=== PATIENT | male | born 1960 | race Caucasian/White ===

== ENCOUNTER 2017-06-05 18:53 | Observation (INO) | payer SELFPAY ==
[2017-06-05] MEDS ORDERED: Pantoprazole 40 MG Vial IVPUSH ONE (19:39)
[2017-06-05] MEDS ORDERED: Sodium Chloride 0.9% 2.5 ML Syringe FLUSH PRN (19:39)
[2017-06-05] MEDS ORDERED: Sodium Chloride 0.9% 1,000 ML IV ONE ×2 (19:39→22:14)
[2017-06-05] MEDS ORDERED: Sodium Chloride 0.9% 10 ML Syringe FLUSH PRN (19:39)
--- NOTE | 2017-06-05 19:43 | EDM.PDOC ---
ED HPI GENERAL MEDICAL PROBLEM - General Chief Complaint: Gastrointestinal Problem Stated Complaint: RECTAL BLEEDING Time Seen by Provider: 06/05/17 19:29 - History of Present Illness INITIAL COMMENTS - FREE TEXT/NARRATIVE: HISTORY AND PHYSICAL: History of present illness: The patient is a 56-year-old male with a history of diabetes but no GI history who presents with rectal bleeding that started about one hour ago. Patient says he had a normal day and eat normal foods and had to have a bowel movement and when he got up from the toilet he noticed that there was loose stool with bright red blood. He had not had any preceding abdominal pain and had no rectal pain with the bowel movement. Since that time he has had several more episodes of bright red blood but no stool and again has no abdominal pain no lightheadedness no chest pain no shortness of breath. The patient denies any nausea vomiting fevers or chills. He is not bleeding in his underwear without having a bowel movement. He says they're essentially no discomfort with these bowel movements and he has no upper abdominal pain. He has not eaten any new foods and says that he follows in our clinic but has not been there recently. Patient has pictures of his last bowel movements which are visually to me only bright red blood without any stool. He did not take a picture of his first bowel movement. Review of systems: As per history of present illness and below otherwise all systems reviewed and negative. Past medical history: As per history of present illness and as reviewed below otherwise noncontributory. Surgical history: As per history of present illness and as reviewed below otherwise noncontributory. Social history: No reported history of drug or alcohol abuse. Family history: As per history of present illness and as reviewed below otherwise noncontributory. Physical exam: General: Well-developed well-nourished man who is overweight and nontoxic and vital signs were noted by me. HEENT: Atraumatic, normocephalic, pupils reactive, negative for conjunctival pallor or scleral icterus, mucous membranes moist, throat clear, neck supple, nontender, trachea midline. Lungs: Clear to auscultation, breath sounds equal bilaterally, chest nontender. Heart: S1S2, regular rhythm and tachycardic rate on my evaluation but only mildly. Abdomen: Soft, nondistended, nontender. Bowel sounds are normoactive. Negative for masses or hepatosplenomegaly. Negative for costovertebral tenderness. Pelvis: Stable nontender. Genitourinary: Deferred. Rectal: Tone is normal and there are no external masses but there is perianal redness and some irritation with a small fissure at the 12:00 lithotomy position which is not bleeding. There are no internal masses appreciated and there is only a scant amount of dark blood in the vault. Extremities: Atraumatic, negative for cords or calf pain. Neurovascular unremarkable. Neuro: Awake, alert, oriented. Cranial nerves II through XII unremarkable. Cerebellum unremarkable. Motor and sensory unremarkable throughout. Exam nonfocal. Skin: Normal turgor no diaphoresis normal overall color Diagnostics: CBC CMP INR lipase CT scan of the abdomen and pelvis orthostatic vitals Therapeutics: IV, IV fluids Protonix Orthostatic vitals are positive for blood pressure change of a systolic of 120 laying to a systolic of 80 while standing with little change in heart rate from 92-106. Patient was a little lightheaded with this evaluation. 2155: Patient is aware of all testing results and care plan for observation admission; case was discussed with Dr. Moon who will see and evaluate the patient but agrees as long as surgical consult is made. I've contacted Dr. Waters at [phone] and he will see the patient in the morning for formal consultation. The patient will receive another dose of IV fluids and be observed on telemetry. Patient did tell me earlier that he has not taken his evening insulin dose yet Impression: Rectal bleeding with orthostasis stable, hyperglycemia with history of diabetes Definitive disposition and diagnosis as appropriate pending reevaluation and review of above. denies pain Pain Score (Numeric/FACES): 0 - Related Data Allergies Allergy/AdvReac Type Severity Reaction Status Date / Time No Known Allergies Allergy Verified 06/05/17 19:26 Home Meds: Home Meds Insulin Inj 06/05/17 [History] Past Medical History - Past Health History Medical/Surgical History: Denies Medical/Surgical History HEENT History: Reports: None Cardiovascular History: Reports: None Respiratory History: Reports: None Gastrointestinal History: Reports: None Genitourinary History: Reports: None Musculoskeletal History: Reports: None Neurological History: Reports: None Psychiatric History: Reports: None Endocrine/Metabolic History: Reports: Diabetes, Type II Hematologic History: Reports: None Immunologic History: Reports: None Oncologic (Cancer) History: Reports: None Dermatologic History: Reports: None - Infectious Disease History Infectious Disease History: Reports: Chicken Pox, Measles - Past Surgical History Musculoskeletal Surgical History: Reports: Arthroscopic Knee, Other (See Below) Social & Family History - Family History Family Medical History: Noncontributory - Tobacco Use Years of Tobacco use: 10 Second Hand Smoke Exposure: No - Caffeine Use Caffeine Use: Reports: Energy Drinks, Soda - Recreational Drug Use Recreational Drug Use: No ED ROS GENERAL - Review of Systems Review Of Systems: ROS reveals no pertinent complaints other than HPI. ED EXAM, GENERAL - Physical Exam Exam: See Below (see dictation) Course - Vital Signs Last Recorded V/S: Last Vital Signs Temp 37.1 C 06/05/17 19:27 Pulse 125 H 06/05/17 19:27 Resp 19 06/05/17 19:27 BP 127/79 06/05/17 19:27 Pulse Ox 96 06/05/17 19:27 Orthostatic Blood Pressure [ 80/46 Standing] Orthostatic Blood Pressure [ 80/51 Sitting] Orthostatic Blood Pressure [ 120/70 Supine] - Orders/Labs/Meds Orders: Active Orders 24 hr Category Date Time Status Patient Status [ADT] Stat ADT 06/05/17 22:13 Ordered Blood Glucose Check, Bedside [RC] ONETIME Care 06/05/17 19:39 Active Notify Provider Consults [RC] ASDIRECTED Care 06/05/17 22:13 Ordered Orthostatic Vital Signs [RC] ASDIRECTED Care 06/05/17 19:39 Active Consult to Physician [CONS] Stat Cons 06/05/17 22:13 Ordered Abdomen Pelvis w Cont [CT] Stat Exams 06/05/17 19:39 Taken Sodium Chloride 0.9% [Normal Saline] 1,000 ml Med 06/05/17 22:14 Ordered IV STAT Sodium Chloride 0.9% [Saline Flush] Med 06/05/17 19:39 Active 10 ml FLUSH ASDIRECTED PRN Sodium Chloride 0.9% [Saline Flush] Med 06/05/17 19:39 Active 2.5 ml FLUSH ASDIRECTED PRN Saline Lock Insert [OM.PC] Stat Oth 06/05/17 19:39 Ordered Medication Orders Sodium Chloride (Saline Flush) 10 ml FLUSH ASDIRECTED PRN PRN Reason: Keep Vein Open Last Admin: 06/05/17 20:13 Dose: 10 ml Sodium Chloride (Saline Flush) 2.5 ml FLUSH ASDIRECTED PRN PRN Reason: Keep Vein Open Last Admin: 06/05/17 20:13 Dose: 2.5 ml Labs: Laboratory Tests 06/05/17 06/05/17 06/05/17 Range/Units 19:45 19:45 19:45 WBC 8.77 (4.0-11.0) K/uL RBC 4.52 (4.50-5.90) M/uL Hgb 13.9 (13.0-17.0) g/dL Hct 40.6 (38.0-50.0) % MCV 89.8 (80.0-98.0) fL MCH 30.8 (27.0-32.0) pg MCHC 34.2 (31.0-37.0) g/dL RDW Std Deviation 40.4 (28.0-62.0) fl RDW Coeff of Hayden 12 (11.0-15.0) % Plt Count 275 (150-400) K/uL MPV 10.50 (7.40-12.00) fL Neut % (Auto) 68.2 (48.0-80.0) % Lymph % (Auto) 22.9 (16.0-40.0) % [place] % (Auto) 7.4 (0.0-15.0) % Eos % (Auto) 1.3 (0.0-7.0) % Baso % (Auto) 0.2 (0.0-1.5) % Neut # (Auto) 6.0 H (1.4-5.7) K/uL Lymph # (Auto) 2.0 (0.6-2.4) K/uL [place] # (Auto) 0.7 (0.0-0.8) K/uL Eos # (Auto) 0.1 (0.0-0.7) K/uL Baso # (Auto) 0.0 (0.0-0.1) K/uL Nucleated RBC % 0.0 /100WBC Nucleated RBCs # 0 K/uL INR 0.96 Sodium 133 L (136-148) mmol/L Potassium 4.3 (3.5-5.1) mmol/L Chloride 99 (98-107) mmol/L Carbon Dioxide 26.2 (21.0-32.0) mmol/L BUN 20 H (7.0-18.0) mg/dL Creatinine 1.0 (0.8-1.3) mg/dL Est Cr Clr Drug Dosing 81.70 mL/min Estimated GFR (MDRD) > 60.0 ml/min Glucose 430 H (74-106) mg/dL POC Glucose (60-110) mg/dL Calcium 8.8 (8.5-10.1) mg/dL Total Bilirubin 0.3 (0.2-1.0) mg/dL AST 17 (15-37) IU/L ALT 36 (14-63) IU/L Alkaline Phosphatase 60 (46-116) U/L Total Protein 7.1 (6.4-8.2) g/dL Albumin 3.5 (3.4-5.0) g/dL Globulin 3.6 H (2.0-3.5) g/dL Albumin/Globulin Ratio 1.0 L (1.3-2.8) Lipase 56 L (73-393) U/L 06/05/17 Range/Units 20:18 WBC (4.0-11.0) K/uL RBC (4.50-5.90) M/uL Hgb (13.0-17.0) g/dL Hct (38.0-50.0) % MCV (80.0-98.0) fL MCH (27.0-32.0) pg MCHC (31.0-37.0) g/dL RDW Std Deviation (28.0-62.0) fl RDW Coeff of Hayden (11.0-15.0) % Plt Count (150-400) K/uL MPV (7.40-12.00) fL Neut % (Auto) (48.0-80.0) % Lymph % (Auto) (16.0-40.0) % [place] % (Auto) (0.0-15.0) % Eos % (Auto) (0.0-7.0) % Baso % (Auto) (0.0-1.5) % Neut # (Auto) (1.4-5.7) K/uL Lymph # (Auto) (0.6-2.4) K/uL [place] # (Auto) (0.0-0.8) K/uL Eos # (Auto) (0.0-0.7) K/uL Baso # (Auto) (0.0-0.1) K/uL Nucleated RBC % /100WBC Nucleated RBCs # K/uL INR Sodium (136-148) mmol/L Potassium (3.5-5.1) mmol/L Chloride (98-107) mmol/L Carbon Dioxide (21.0-32.0) mmol/L BUN (7.0-18.0) mg/dL Creatinine (0.8-1.3) mg/dL Est Cr Clr Drug Dosing mL/min Estimated GFR (MDRD) ml/min Glucose (74-106) mg/dL POC Glucose 382 H (60-110) mg/dL Calcium (8.5-10.1) mg/dL Total Bilirubin (0.2-1.0) mg/dL AST (15-37) IU/L ALT (14-63) IU/L Alkaline Phosphatase (46-116) U/L Total Protein (6.4-8.2) g/dL Albumin (3.4-5.0) g/dL Globulin (2.0-3.5) g/dL Albumin/Globulin Ratio (1.3-2.8) Lipase (73-393) U/L Meds: Medications Generic Name Dose Route Start Last Admin Trade Name Freq PRN Reason Stop Dose Admin Sodium Chloride 10 ml 06/05/17 19:39 06/05/17 20:13 Saline Flush FLUSH 10 ml ASDIRECTED PRN Administration Keep Vein Open Sodium Chloride 2.5 ml 06/05/17 19:39 06/05/17 20:13 Saline Flush FLUSH 2.5 ml ASDIRECTED PRN Administration Keep Vein Open Discontinued Medications Generic Name Dose Route Start Last Admin Trade Name Freq PRN Reason Stop Dose Admin Sodium Chloride 1,000 mls @ 999 mls/hr 06/05/17 19:39 06/05/17 20:13 Normal Saline IV 06/05/17 20:39 999 mls/hr STAT ONE Administration Iopamidol 100 ml 06/05/17 20:46 06/05/17 20:46 Isovue-370 (76%) IVPUSH 06/05/17 20:47 100 ml ONETIME STA Administration Pantoprazole Sodium 80 mg 06/05/17 19:39 06/05/17 20:12 Protonix Iv IVPUSH 06/05/17 19:40 80 mg .BOLUS ONE Administration Departure - Departure Time of Disposition: 22:16 Disposition: Refer to Observation Condition: Good Clinical Impression: Rectal bleeding - Discharge Information Referrals: Pop Luciano DO [Primary Care Provider] - Forms: ED Department Discharge - My Orders Last 24 Hours: My Active Orders 06/05/17 19:39 Blood Glucose Check, Bedside [RC] ONETIME Orthostatic Vital Signs [RC] ASDIRECTED Abdomen Pelvis w Cont [CT] Stat Sodium Chloride 0.9% [Saline Flush] 10 ml FLUSH ASDIRECTED PRN Sodium Chloride 0.9% [Saline Flush] 2.5 ml FLUSH ASDIRECTED PRN Saline Lock Insert [OM.PC] Stat 06/05/17 22:13 Patient Status [ADT] Stat Notify Provider Consults [RC] ASDIRECTED Consult to Physician [CONS] Stat 06/05/17 22:14 Sodium Chloride 0.9% [Normal Saline] 1,000 ml IV STAT - Assessment/Plan Last 24 Hours: My Active Orders 06/05/17 19:39 Blood Glucose Check, Bedside [RC] ONETIME Orthostatic Vital Signs [RC] ASDIRECTED Abdomen Pelvis w Cont [CT] Stat Sodium Chloride 0.9% [Saline Flush] 10 ml FLUSH ASDIRECTED PRN Sodium Chloride 0.9% [Saline Flush] 2.5 ml FLUSH ASDIRECTED PRN Saline Lock Insert [OM.PC] Stat 06/05/17 22:13 Patient Status [ADT] Stat Notify Provider Consults [RC] ASDIRECTED Consult to Physician [CONS] Stat 06/05/17 22:14 Sodium Chloride 0.9% [Normal Saline] 1,000 ml IV STAT
[2017-06-05 20:13] LABS: CHLORIDE,CL 99 mmol/L (98-107); SODIUM,NA 133 mmol/L (136-148)
[2017-06-05] MEDS ORDERED: Iopamidol 755 Mg/ML 100 ML Bottle IVPUSH STA (20:46)
[2017-06-05] MEDS ORDERED: Insulin Detemir 100 Units/ML 3 ML Pen SUBCUT ONE (23:52)
--- NOTE | 2017-06-06 00:07 | PCM.HP ---
H&P History of Present Illness - General Admit Problem/Dx: Admission Diagnosis/Problem Admission Diagnosis/Problem Rectal hemorrhage - History of Present Illness Initial Comments - Free Text/Narative: 56 yo male who presents with bright red blood in his stool that would make the toilet bowel red. He has had two such bowel movements tonight. He does report some right lower quadrant pain. He denies any lightheadedness. He was noted to be orthostatic n the ED with BP in the 80s while standing. Dr. Waters was consulted in the ED. He denies any nausea or vomiting. HE has a history of DM and takes 70/30 at niight befor he goes to bed. Left Lower Abdomen Pain Score (Numeric/FACES): 3 denies pain Pain Score (Numeric/FACES): 0 - Related Data Allergies/Adverse Reactions: Allergies Allergy/AdvReac Type Severity Reaction Status Date / Time No Known Allergies Allergy Verified 06/05/17 19:26 Home Medications: Home Meds Insulin NPH/Insulin Reg,Human [Novolin 70-30] 50 units SUBCUT BEDTIME 06/05/17 [ History] Past Medical History - Past Health History Medical/Surgical History: Denies Medical/Surgical History HEENT History: Reports: None Cardiovascular History: Reports: None Respiratory History: Reports: None Gastrointestinal History: Reports: None Genitourinary History: Reports: None Musculoskeletal History: Reports: None Neurological History: Reports: None Psychiatric History: Reports: None Endocrine/Metabolic History: Reports: Diabetes, Type II Hematologic History: Reports: None Immunologic History: Reports: None Oncologic (Cancer) History: Reports: None Dermatologic History: Reports: None - Infectious Disease History Infectious Disease History: Reports: Chicken Pox, Measles - Past Surgical History HEENT Surgical History: Reports: Eye Surgery Male Surgical History: Reports: None Musculoskeletal Surgical History: Reports: Arthroscopic Knee, Other (See Below) Social & Family History - Family History Family Medical History: Noncontributory - Tobacco Use Smoking Status *Q: Never Smoker Years of Tobacco use: 10 Second Hand Smoke Exposure: No - Caffeine Use Caffeine Use: Reports: Coffee, Energy Drinks, Soda, Tea - Recreational Drug Use Recreational Drug Use: No H&P Review of Systems - Review of Systems: Review Of Systems: ROS reveals no pertinent complaints other than HPI. Exam - Exam Exam: See Below - Vital Signs Vital Signs: Last Vital Signs Temp 37.1 C 06/05/17 19:27 Pulse 92 06/05/17 22:29 Resp 16 06/05/17 22:29 BP 127/73 06/05/17 22:29 Pulse Ox 95 06/05/17 22:29 Orthostatic Blood Pressure [ 80/46 Standing] Orthostatic Blood Pressure [ 80/51 Sitting] Orthostatic Blood Pressure [ 120/70 Supine] Weight: 130.453 kg - Exam General: Alert, Oriented HEENT: Mucosa Moist & [place] Lungs: Clear to Auscultation, Normal Respiratory Effort Cardiovascular: Regular Rate, Regular Rhythm GI/Abdominal Exam: Normal Bowel Sounds, Soft, Non-Tender Skin: Warm, Dry, Intact Neurological: No: Focal Deficit - Patient Data Lab Results Last 24 hrs: Laboratory Results - last 24 hr 06/05/17 06/05/17 06/05/17 Range/Units 19:45 19:45 19:45 WBC 8.77 (4.0-11.0) K/uL RBC 4.52 (4.50-5.90) M/uL Hgb 13.9 (13.0-17.0) g/dL Hct 40.6 (38.0-50.0) % MCV 89.8 (80.0-98.0) fL MCH 30.8 (27.0-32.0) pg MCHC 34.2 (31.0-37.0) g/dL RDW Std Deviation 40.4 (28.0-62.0) fl RDW Coeff of Hayden 12 (11.0-15.0) % Plt Count 275 (150-400) K/uL MPV 10.50 (7.40-12.00) fL Neut % (Auto) 68.2 (48.0-80.0) % Lymph % (Auto) 22.9 (16.0-40.0) % [place] % (Auto) 7.4 (0.0-15.0) % Eos % (Auto) 1.3 (0.0-7.0) % Baso % (Auto) 0.2 (0.0-1.5) % Neut # (Auto) 6.0 H (1.4-5.7) K/uL Lymph # (Auto) 2.0 (0.6-2.4) K/uL [place] # (Auto) 0.7 (0.0-0.8) K/uL Eos # (Auto) 0.1 (0.0-0.7) K/uL Baso # (Auto) 0.0 (0.0-0.1) K/uL Nucleated RBC % 0.0 /100WBC Nucleated RBCs # 0 K/uL INR 0.96 Sodium 133 L (136-148) mmol/L Potassium 4.3 (3.5-5.1) mmol/L Chloride 99 (98-107) mmol/L Carbon Dioxide 26.2 (21.0-32.0) mmol/L BUN 20 H (7.0-18.0) mg/dL Creatinine 1.0 (0.8-1.3) mg/dL Est Cr Clr Drug Dosing 81.70 mL/min Estimated GFR (MDRD) > 60.0 ml/min Glucose 430 H (74-106) mg/dL POC Glucose (60-110) mg/dL Calcium 8.8 (8.5-10.1) mg/dL Total Bilirubin 0.3 (0.2-1.0) mg/dL AST 17 (15-37) IU/L ALT 36 (14-63) IU/L Alkaline Phosphatase 60 (46-116) U/L Total Protein 7.1 (6.4-8.2) g/dL Albumin 3.5 (3.4-5.0) g/dL Globulin 3.6 H (2.0-3.5) g/dL Albumin/Globulin Ratio 1.0 L (1.3-2.8) Lipase 56 L (73-393) U/L 06/05/17 Range/Units 20:18 WBC (4.0-11.0) K/uL RBC (4.50-5.90) M/uL Hgb (13.0-17.0) g/dL Hct (38.0-50.0) % MCV (80.0-98.0) fL MCH (27.0-32.0) pg MCHC (31.0-37.0) g/dL RDW Std Deviation (28.0-62.0) fl RDW Coeff of Hayden (11.0-15.0) % Plt Count (150-400) K/uL MPV (7.40-12.00) fL Neut % (Auto) (48.0-80.0) % Lymph % (Auto) (16.0-40.0) % [place] % (Auto) (0.0-15.0) % Eos % (Auto) (0.0-7.0) % Baso % (Auto) (0.0-1.5) % Neut # (Auto) (1.4-5.7) K/uL Lymph # (Auto) (0.6-2.4) K/uL [place] # (Auto) (0.0-0.8) K/uL Eos # (Auto) (0.0-0.7) K/uL Baso # (Auto) (0.0-0.1) K/uL Nucleated RBC % /100WBC Nucleated RBCs # K/uL INR Sodium (136-148) mmol/L Potassium (3.5-5.1) mmol/L Chloride (98-107) mmol/L Carbon Dioxide (21.0-32.0) mmol/L BUN (7.0-18.0) mg/dL Creatinine (0.8-1.3) mg/dL Est Cr Clr Drug Dosing mL/min Estimated GFR (MDRD) ml/min Glucose (74-106) mg/dL POC Glucose 382 H (60-110) mg/dL Calcium (8.5-10.1) mg/dL Total Bilirubin (0.2-1.0) mg/dL AST (15-37) IU/L ALT (14-63) IU/L Alkaline Phosphatase (46-116) U/L Total Protein (6.4-8.2) g/dL Albumin (3.4-5.0) g/dL Globulin (2.0-3.5) g/dL Albumin/Globulin Ratio (1.3-2.8) Lipase (73-393) U/L Result Diagrams: 06/06/17 12:09 06/06/17 04:35 Problem List Initiated/Reviewed/Updated: Yes Orders Last 24hrs: Active Orders 24 hr Category Date Time Status Patient Status [ADT] Stat ADT 06/05/17 22:13 Active Accu Check [Blood Glucose Check, Bedside] [RC] Q6HRRT Care 06/06/17 00:00 Active Blood Glucose Check, Bedside [RC] ONETIME Care 06/05/17 19:39 Active Cardiac Monitoring [RC] CONTINUOUS Care 06/05/17 23:55 Ordered Notify Provider Consults [RC] ASDIRECTED Care 06/05/17 22:13 Active Orthostatic Vital Signs [RC] ASDIRECTED Care 06/05/17 19:39 Active Oxygen Therapy [RC] PRN Care 06/05/17 23:54 Ordered Telemetry Monitoring [Cardiac Monitoring] [RC] . Care 06/05/17 23:52 Active DIRECTED VTE/DVT Education [RC] PER UNIT ROUTINE Care 06/05/17 23:54 Ordered Vital Signs [RC] Q4H Care 06/05/17 23:54 Ordered Consult to Diabetic Nurse Specialist [CONS] Routine Cons 06/05/17 23:54 Ordered Consult to Physician [CONS] Stat Cons 06/05/17 22:13 Active Nothing per Oral Now Diet [DIET] Diet 06/05/17 Breakfast Ordered Abdomen Pelvis w Cont [CT] Stat Exams 06/05/17 19:39 Taken BASIC METABOLIC PANEL,BMP [CHEM] AM Lab 06/06/17 05:11 Ordered CBC W/O DIFF,HEMOGRAM [HEME] AM Lab 06/06/17 05:11 Ordered Insulin Aspart [NovoLOG] Med 06/05/17 23:45 Ordered See Protocol SUBCUT Q6H Sodium Chloride 0.9% @ 150 MLS/HR (1,000ml) Med 06/05/17 23:45 Ordered Sodium Chloride 0.9% [Normal Saline] 1,000 ml IV ASDIRECTED Sodium Chloride 0.9% [Saline Flush] Med 06/05/17 19:39 Active 10 ml FLUSH ASDIRECTED PRN Sodium Chloride 0.9% [Saline Flush] Med 06/05/17 19:39 Active 2.5 ml FLUSH ASDIRECTED PRN Saline Lock Insert [OM.PC] Stat Oth 06/05/17 19:39 Ordered Sequential Compression Device [OM.PC] Per Unit Routine Oth 06/05/17 23:55 Ordered Resuscitation Status Routine Resus Stat 06/05/17 23:54 Ordered Medication Orders Sodium Chloride (Normal Saline) 1,000 mls @ 150 mls/hr IV ASDIRECTED JESSENIA Insulin Aspart (Novolog) 0 unit SUBCUT Q6H JESSENIA; Protocol Sodium Chloride (Saline Flush) 10 ml FLUSH ASDIRECTED PRN PRN Reason: Keep Vein Open Last Admin: 04/01/18 20:13 Dose: 10 ml Sodium Chloride (Saline Flush) 2.5 ml FLUSH ASDIRECTED PRN PRN Reason: Keep Vein Open Last Admin: 06/05/17 20:13 Dose: 2.5 ml Assessment/Plan Comment:: 56 yo male admitted with lower GI bleed. CT scan of abdomen reports possible localized mural thickening of the sigmoid colon. Dr. Waters has been consulted. Will hydrate with IV fluids and monitor hgb. For his elevated blood sugars will give levemer [address] on sliding scale insulin
[2017-06-06] MEDS: Sodium Chloride 0.9% 1,000 ML IV SCH ×4 (00:12→19:07)
[2017-06-06] MEDS: Insulin Aspart 100 Units/ML 3 ML Pen SUBCUT SCH ×4 (00:23→17:34)
[2017-06-06] MEDS ORDERED: Sodium Chloride 0.9% 1,000 ML IV ONE (03:14)
[2017-06-06] MEDS ORDERED: Sodium Chloride 0.9% 500 ML IV SCH (04:30)
[2017-06-06 04:57] LABS: CHLORIDE,CL 107 mmol/L (98-107); SODIUM,NA 138 mmol/L (136-148)
--- NOTE | 2017-06-06 05:28 | PCM.SN ---
- Free Text/Narrative Note: pt seen, chart reviewed; gib, daily ASA 325 mg use, last one was 24 hrs ago; gib protocol, 2 large iv access, 18 gauge or above; strict i/o, avoid ASA product, daily wt, ct angio this am, transfuse to h/h above 10, cx dicted, [id number]; will follow w you
[2017-06-06] MEDS ORDERED: Morphine 4 MG/ML Syringe IV ONE (10:56)
--- NOTE | 2017-06-06 10:56 | CONS ---
DATE OF CONSULTATION: DATE OF : 1960 PRIMARY CARE PHYSICIAN: None PCP REASON FOR CONSULTATION: The patient was consulted for GI bleeding. Consult was called, and the patient was seen shortly after. HISTORY OF PRESENT ILLNESS: The patient is a 56-year-old gentleman, morbidly obese, and complained of a 12-hour history of 6 to 7 times of bloody bowel movement. The bloody is dark and dusky and is not bright red, and the patient is taking 325 mg aspirin once a day as recommended by doctor because he is diabetic, last one was 24 hours ago. The patient remarked the 6 to 7 bowel movements as 2 to 3 of them are large size and 4 of them just a smear. Denied chest pain. Denied short of breath. Denied syncope. Denied prior episode. Denied abdominal pain. The patient note that when he brushes teeth in the morning sometimes and yesterday too, he saw a blood on the toothbrush. PAST MEDICAL HISTORY: Significant for diabetic. No OH, CVA, or hypertension. PAST SURGICAL HISTORY: None. No colonoscopy in the past. PRIMARY CARE DOCTOR: Pop Luciano DO ALLERGIES: Please refer to nursing note for details. MEDICATIONS: Please refer to nursing note for details. PHYSICAL EXAMINATION: GENERAL: A very pleasant, nice gentleman, in no acute distress. In fact, the patient wants to go back to sleep. HEENT: Normocephalic and atraumatic. Sclerae are anicteric. LUNGS: Clear to auscultation. HEART: Regular rate and rhythm. ABDOMEN: Soft and nondistended. No pulsating or tender midline abdominal structure. Nontender. Bowel sounds in all 4 quadrants. No surgical scar. No hernia appreciated. LABORATORY VALUES: Upon consultation, H and H of 10.4, dropped from 13.9 and platelets are 196. Glucose is 310, BUN is 17, and creatinine is 0.8. IMPRESSION AND PLAN: Gastrointestinal bleeding with a CAT scan that shows thickening of the sigmoid, likely the lower gastrointestinal bleeding, cannot rule out upper GI bleeding though. However, on examination, the patient does not have any epigastric pain, and the patient denied taking other NSAIDs other than aspirin, but there is a full dose 325 mg, and denied prior episode. We will put GI bleeding protocol transfusing to above 10. Strict in and out. Avoid any anticoagulation or any Lovenox or aspirin products. Two large-bore IV access. H and H q.8 hours. In the case bleeding seem to be clinically continued, first of all the patient would benefit to have a bleeding scan, and bleeding scan requires 1 mL/min bleeding, and if that is negative and clinically still active bleeding, then we will proceed with tagged RBC nuclear scan, which can detect 0.1 to 0.5 mL/min bleeding. If the bleeding stops, the patient would benefit to have a colonoscopy. If the bleeding slows down or stable, the patient will also benefit to have a colonoscopy. In the unlikely event if the patient becomes hemodynamically unstable and without able to localize the bleeding source, the patient would benefit to have a subtotal colectomy, that means losing all the colon. The patient will be much better to be transferred to tertiary care center, where they have Interventional Radiology to do embolize the bleeding vessel or surgical intervention as the patient's BMI is 44. In the preference of workup, the patient would benefit to have a tagged RBC nuclear scan. If it is not available, we will proceed with CT angio and treatment can be either CT angio catheter-direct embolization or vasopressin medical treatment, and the last resort is surgical resection, but that would benefit to have it localized prior to surgery. All has been discussed with the patient. The patient voiced understanding. We will follow the patient with you. As always, thank you for your kind referral. SELENA WILSON /[id number]
--- NOTE | 2017-06-06 13:51 | CT ---
EXAM DATE: 06/05/17 PATIENT'S AGE: 56 Patient: JOHN ZHENG Facility: [place], [place] Site . Site : [id number] Study: CT Abdomen/Pelvis WITH [id number]/2018 8:51:33 PM Ordering Physician: Joshua Monge Final Report: Indication : Blood in the stool for 1 day. TECHNIQUE: Contrast-enhanced CT of the abdomen and pelvis. 100 cc nonionic Isovue-370 administered without complication. FINDINGS: Slight fibrosis or atelectasis lingular segment left upper lobe. The included lung bases are otherwise clear. The liver is negative for masses or biliary dilatation. Slight hepatic fatty infiltration. The spleen, pancreas, gallbladder, both adrenal glands, both kidneys, abdominal aorta, iliac arteries, and inferior vena cava are within normal limits. Urinary bladder contains approximately 3 tiny diverticula most obvious toward the right of midline, image 133 series 201 measuring up to 2 cm. No bladder stone. The prostate and seminal vesicles are within normal limits. Calcified pelvic phleboliths. The stomach and duodenum are partly decompressed but grossly unremarkable. Tiny probable sliding hiatal hernia. Few scattered left efrain colonic diverticula without diverticulitis. Questionable localized mural thickening of the sigmoid colon, image 115 series 201 and image 40 series 203. Colonoscopy is suggested when the clinical picture allows. There is no evidence for colonic obstruction or ileus and no ascites or lymphadenopathy. The included skeleton is negative for fractures. Bilateral pars defects at L5-S1. Multilevel degenerative disc disease of the lumbar spine with scattered hypertrophic spurring. IMPRESSION: 1. Left efrain colonic diverticulosis without diverticulitis. 2. Possible localized mural thickening of the sigmoid colon, image 115 series 201 and image 40 series 203. Colonoscopy is recommended when the clinical picture allows. 3. Mild hepatic fatty infiltration. Tiny esophageal hiatal hernia. Please note that all CT scans at this facility use dose modulation, iterative reconstruction, and/or weight-based dosing when appropriate to reduce radiation dose to as low as reasonably achievable. Dictated by Pop Phillips MD @ Jun 05 2017 9:25PM (Electronic Signature) Report Signed by Proxy. [facility] HE[facility] SERVICESFidel
[2017-06-06] MEDS ORDERED: Iopamidol 755 MG/ML 200 ML Multipack Bottle IVPUSH STA (15:34)
--- NOTE | 2017-06-06 15:51 | NM ---
EXAMINATION: NM GI bleed study HISTORY: Bleeding COMPARISON: CT dated 06/05/2017 TECHNIQUE: Dynamic planar images obtained of the abdomen following the administration of 22 mCi of te chnetium 99m labeled red blood cells. FINDINGS: There is pooling of activity within the blood vessels. Early gastric activity is noted with in the stomach which does not move over time. No mobile focal activity projecting over the bowel. IMPRESSION: 1. No scintigraphic evidence of an active GI bleed.
--- NOTE | 2017-06-06 16:06 | CT ---
EXAMINATION: CTA abdomen and pelvis HISTORY: Hemorrhage COMPARISON: CT dated 06/05/2017 TECHNIQUE: Axial CT images obtained through the abdomen and pelvis following the administration of 10 0 mL of Isovue-370 in the left arm. Coronal and sagittal reconstructions obtained. FINDINGS: The lung bases are clear, no pleural effusion. There is likely fatty infiltration of the liver. The spleen, adrenal glands, pancreas appear normal. Vicarious intravasation of contrast noted within the gallbladder. Tiny hiatal hernia. The kidneys enhance and function symmetrically without evidence of obstructive uropathy. The urinary bladder image trace a few small diverticula, otherwise appear normal. The large and small bowel are normal in caliber without evidence of obstruction. The appendix is norm al. Moderate diverticulosis noted within the colon most prominent within the sigmoid region. Prostate is normal. No bulky pelvic lymphadenopathy or free pelvic fluid. No suspicious osseous abnormalities. IMPRESSION: 1. Moderate diverticulosis without evidence of diverticulitis. 2. No evidence of an active GI bleed. 3. Small hiatal hernia. 4. Mild fatty infiltration of the liver.
--- NOTE | 2017-06-06 16:14 | PCM.PN ---
- General Info Date of Service: 06/06/17 Subjective Update: Patient appears to be stable, he is still having some mild abdominal pain on the left lower quadrant, patient denies any nausea or vomiting, patient states that he did have a bowel movement that did appear to have blood mixed within it. - Patient Data Vitals - Most Recent: Last Vital Signs Temp 36.8 C 06/06/17 16:00 Pulse 74 06/06/17 16:00 Resp 18 06/06/17 16:00 BP 104/58 L 06/06/17 16:00 Pulse Ox 97 06/06/17 16:00 Orthostatic Blood Pressure [ 80/46 Standing] Orthostatic Blood Pressure [ 80/51 Sitting] Orthostatic Blood Pressure [ 120/70 Supine] Weight - Most Recent: 130.453 kg I&O - Last 24 Hours: Intake & Output 06/06/17 06/06/17 06/06/17 06:59 14:59 22:59 Intake Total 1547 Output Total 600 Balance 947 Lab Results Last 24 Hours: Laboratory Results - last 24 hr 06/05/17 06/05/17 06/05/17 Range/Units 19:45 19:45 19:45 WBC 8.77 (4.0-11.0) K/uL RBC 4.52 (4.50-5.90) M/uL Hgb 13.9 (13.0-17.0) g/dL Hct 40.6 (38.0-50.0) % MCV 89.8 (80.0-98.0) fL MCH 30.8 (27.0-32.0) pg MCHC 34.2 (31.0-37.0) g/dL RDW Std Deviation 40.4 (28.0-62.0) fl RDW Coeff of Hayden 12 (11.0-15.0) % Plt Count 275 (150-400) K/uL MPV 10.50 (7.40-12.00) fL Neut % (Auto) 68.2 (48.0-80.0) % Lymph % (Auto) 22.9 (16.0-40.0) % [place] % (Auto) 7.4 (0.0-15.0) % Eos % (Auto) 1.3 (0.0-7.0) % Baso % (Auto) 0.2 (0.0-1.5) % Neut # (Auto) 6.0 H (1.4-5.7) K/uL Lymph # (Auto) 2.0 (0.6-2.4) K/uL [place] # (Auto) 0.7 (0.0-0.8) K/uL Eos # (Auto) 0.1 (0.0-0.7) K/uL Baso # (Auto) 0.0 (0.0-0.1) K/uL Nucleated RBC % 0.0 /100WBC Nucleated RBCs # 0 K/uL INR 0.96 Sodium 133 L (136-148) mmol/L Potassium 4.3 (3.5-5.1) mmol/L Chloride 99 (98-107) mmol/L Carbon Dioxide 26.2 (21.0-32.0) mmol/L BUN 20 H (7.0-18.0) mg/dL Creatinine 1.0 (0.8-1.3) mg/dL Est Cr Clr Drug Dosing 81.70 mL/min Estimated GFR (MDRD) > 60.0 ml/min Glucose 430 H (74-106) mg/dL POC Glucose (60-110) mg/dL Calcium 8.8 (8.5-10.1) mg/dL Total Bilirubin 0.3 (0.2-1.0) mg/dL AST 17 (15-37) IU/L ALT 36 (14-63) IU/L Alkaline Phosphatase 60 (46-116) U/L Total Protein 7.1 (6.4-8.2) g/dL Albumin 3.5 (3.4-5.0) g/dL Globulin 3.6 H (2.0-3.5) g/dL Albumin/Globulin Ratio 1.0 L (1.3-2.8) Lipase 56 L (73-393) U/L Blood Type Antibody Screen 06/05/17 06/06/17 06/06/17 Range/Units 20:18 00:11 00:42 WBC (4.0-11.0) K/uL RBC (4.50-5.90) M/uL Hgb (13.0-17.0) g/dL Hct (38.0-50.0) % MCV (80.0-98.0) fL MCH (27.0-32.0) pg MCHC (31.0-37.0) g/dL RDW Std Deviation (28.0-62.0) fl RDW Coeff of Hayden (11.0-15.0) % Plt Count (150-400) K/uL MPV (7.40-12.00) fL Neut % (Auto) (48.0-80.0) % Lymph % (Auto) (16.0-40.0) % [place] % (Auto) (0.0-15.0) % Eos % (Auto) (0.0-7.0) % Baso % (Auto) (0.0-1.5) % Neut # (Auto) (1.4-5.7) K/uL Lymph # (Auto) (0.6-2.4) K/uL [place] # (Auto) (0.0-0.8) K/uL Eos # (Auto) (0.0-0.7) K/uL Baso # (Auto) (0.0-0.1) K/uL Nucleated RBC % /100WBC Nucleated RBCs # K/uL INR Sodium (136-148) mmol/L Potassium (3.5-5.1) mmol/L Chloride (98-107) mmol/L Carbon Dioxide (21.0-32.0) mmol/L BUN (7.0-18.0) mg/dL Creatinine (0.8-1.3) mg/dL Est Cr Clr Drug Dosing mL/min Estimated GFR (MDRD) ml/min Glucose (74-106) mg/dL POC Glucose 382 H 309 H (60-110) mg/dL Calcium (8.5-10.1) mg/dL Total Bilirubin (0.2-1.0) mg/dL AST (15-37) IU/L ALT (14-63) IU/L Alkaline Phosphatase (46-116) U/L Total Protein (6.4-8.2) g/dL Albumin (3.4-5.0) g/dL Globulin (2.0-3.5) g/dL Albumin/Globulin Ratio (1.3-2.8) Lipase (73-393) U/L Blood Type A POSITIVE Antibody Screen NEGATIVE 06/06/17 06/06/17 06/06/17 Range/Units 02:46 04:35 04:35 WBC 10.12 (4.0-11.0) K/uL RBC 3.38 L (4.50-5.90) M/uL Hgb 10.4 L (13.0-17.0) g/dL Hct 30.5 L (38.0-50.0) % MCV 90.2 (80.0-98.0) fL MCH 30.8 (27.0-32.0) pg MCHC 34.1 (31.0-37.0) g/dL RDW Std Deviation 40.9 (28.0-62.0) fl RDW Coeff of Hayden 13 (11.0-15.0) % Plt Count 196 (150-400) K/uL MPV 9.90 (7.40-12.00) fL Neut % (Auto) (48.0-80.0) % Lymph % (Auto) (16.0-40.0) % [place] % (Auto) (0.0-15.0) % Eos % (Auto) (0.0-7.0) % Baso % (Auto) (0.0-1.5) % Neut # (Auto) (1.4-5.7) K/uL Lymph # (Auto) (0.6-2.4) K/uL [place] # (Auto) (0.0-0.8) K/uL Eos # (Auto) (0.0-0.7) K/uL Baso # (Auto) (0.0-0.1) K/uL Nucleated RBC % 0.0 /100WBC Nucleated RBCs # 0 K/uL INR Sodium 138 (136-148) mmol/L Potassium 4.7 (3.5-5.1) mmol/L Chloride 107 (98-107) mmol/L Carbon Dioxide 23.8 (21.0-32.0) mmol/L BUN 17 (7.0-18.0) mg/dL Creatinine 0.8 (0.8-1.3) mg/dL Est Cr Clr Drug Dosing 102.13 mL/min Estimated GFR (MDRD) > 60.0 ml/min Glucose 310 H (74-106) mg/dL POC Glucose 310 H (60-110) mg/dL Calcium 7.5 L (8.5-10.1) mg/dL Total Bilirubin (0.2-1.0) mg/dL AST (15-37) IU/L ALT (14-63) IU/L Alkaline Phosphatase (46-116) U/L Total Protein (6.4-8.2) g/dL Albumin (3.4-5.0) g/dL Globulin (2.0-3.5) g/dL Albumin/Globulin Ratio (1.3-2.8) Lipase (73-393) U/L Blood Type Antibody Screen 06/06/17 06/06/17 06/06/17 Range/Units 04:35 06:04 11:27 WBC (4.0-11.0) K/uL RBC (4.50-5.90) M/uL Hgb (13.0-17.0) g/dL Hct (38.0-50.0) % MCV (80.0-98.0) fL MCH (27.0-32.0) pg MCHC (31.0-37.0) g/dL RDW Std Deviation (28.0-62.0) fl RDW Coeff of Hayden (11.0-15.0) % Plt Count (150-400) K/uL MPV (7.40-12.00) fL Neut % (Auto) (48.0-80.0) % Lymph % (Auto) (16.0-40.0) % [place] % (Auto) (0.0-15.0) % Eos % (Auto) (0.0-7.0) % Baso % (Auto) (0.0-1.5) % Neut # (Auto) (1.4-5.7) K/uL Lymph # (Auto) (0.6-2.4) K/uL [place] # (Auto) (0.0-0.8) K/uL Eos # (Auto) (0.0-0.7) K/uL Baso # (Auto) (0.0-0.1) K/uL Nucleated RBC % /100WBC Nucleated RBCs # K/uL INR 1.03 Sodium (136-148) mmol/L Potassium (3.5-5.1) mmol/L Chloride (98-107) mmol/L Carbon Dioxide (21.0-32.0) mmol/L BUN (7.0-18.0) mg/dL Creatinine (0.8-1.3) mg/dL Est Cr Clr Drug Dosing mL/min Estimated GFR (MDRD) ml/min Glucose (74-106) mg/dL POC Glucose 284 H 235 H (60-110) mg/dL Calcium (8.5-10.1) mg/dL Total Bilirubin (0.2-1.0) mg/dL AST (15-37) IU/L ALT (14-63) IU/L Alkaline Phosphatase (46-116) U/L Total Protein (6.4-8.2) g/dL Albumin (3.4-5.0) g/dL Globulin (2.0-3.5) g/dL Albumin/Globulin Ratio (1.3-2.8) Lipase (73-393) U/L Blood Type Antibody Screen 06/06/17 Range/Units 12:09 WBC (4.0-11.0) K/uL RBC (4.50-5.90) M/uL Hgb 9.9 L (13.0-17.0) g/dL Hct 28.7 L (38.0-50.0) % MCV (80.0-98.0) fL MCH (27.0-32.0) pg MCHC (31.0-37.0) g/dL RDW Std Deviation (28.0-62.0) fl RDW Coeff of Hayden (11.0-15.0) % Plt Count (150-400) K/uL MPV (7.40-12.00) fL Neut % (Auto) (48.0-80.0) % Lymph % (Auto) (16.0-40.0) % [place] % (Auto) (0.0-15.0) % Eos % (Auto) (0.0-7.0) % Baso % (Auto) (0.0-1.5) % Neut # (Auto) (1.4-5.7) K/uL Lymph # (Auto) (0.6-2.4) K/uL [place] # (Auto) (0.0-0.8) K/uL Eos # (Auto) (0.0-0.7) K/uL Baso # (Auto) (0.0-0.1) K/uL Nucleated RBC % /100WBC Nucleated RBCs # K/uL INR Sodium (136-148) mmol/L Potassium (3.5-5.1) mmol/L Chloride (98-107) mmol/L Carbon Dioxide (21.0-32.0) mmol/L BUN (7.0-18.0) mg/dL Creatinine (0.8-1.3) mg/dL Est Cr Clr Drug Dosing mL/min Estimated GFR (MDRD) ml/min Glucose (74-106) mg/dL POC Glucose (60-110) mg/dL Calcium (8.5-10.1) mg/dL Total Bilirubin (0.2-1.0) mg/dL AST (15-37) IU/L ALT (14-63) IU/L Alkaline Phosphatase (46-116) U/L Total Protein (6.4-8.2) g/dL Albumin (3.4-5.0) g/dL Globulin (2.0-3.5) g/dL Albumin/Globulin Ratio (1.3-2.8) Lipase (73-393) U/L Blood Type Antibody Screen Med Orders - Current: Current Medications Sodium Chloride (Normal Saline) 1,000 mls @ 150 mls/hr IV ASDIRECTED JESSENIA Last Admin: 06/06/17 11:17 Dose: 150 mls/hr Insulin Aspart (Novolog) 0 unit SUBCUT Q6H JESSENIA; Protocol Last Admin: 06/06/17 11:36 Dose: 4 units Insulin Detemir (Levemir) 20 unit SUBCUT BEDTIME [facility] Sodium Chloride (Saline Flush) 10 ml FLUSH ASDIRECTED PRN PRN Reason: Keep Vein Open Last Admin: 06/05/17 20:13 Dose: 10 ml Sodium Chloride (Saline Flush) 2.5 ml FLUSH ASDIRECTED PRN PRN Reason: Keep Vein Open Last Admin: 06/05/17 20:13 Dose: 2.5 ml Discontinued Medications Sodium Chloride (Normal Saline) 1,000 mls @ 999 mls/hr IV STAT ONE Stop: 06/05/17 20:39 Last Admin: 06/05/17 20:13 Dose: 999 mls/hr Sodium Chloride (Normal Saline) 1,000 mls @ 999 mls/hr IV STAT ONE Stop: 06/05/17 23:14 Last Admin: 06/05/17 22:23 Dose: 999 mls/hr Sodium Chloride (Normal Saline) 1,000 mls @ 999 mls/hr IV .Bolus ONE Stop: 06/06/17 04:14 Last Infusion: 06/06/17 04:11 Dose: Infused Sodium Chloride (Normal Saline) 500 mls @ 999 mls/hr IV .BOLUS JESSENIA Last Admin: 06/06/17 04:45 Dose: 999 mls/hr Insulin Detemir (Levemir) 20 unit SUBCUT ONETIME ONE Stop: 06/05/17 23:53 Last Admin: 06/06/17 00:26 Dose: 20 units Iopamidol (Isovue-370 (76%)) 100 ml IVPUSH ONETIME STA Stop: 06/05/17 20:47 Last Admin: 06/05/17 20:46 Dose: 100 ml Iopamidol (Isovue Multipack-370 (76%)) 100 ml IVPUSH ONETIME STA Stop: 06/06/17 15:35 Last Admin: 06/06/17 15:34 Dose: 100 ml Morphine Sulfate (Morphine) 2 mg IV ONETIME ONE Stop: 06/06/17 10:57 Last Admin: 06/06/17 11:18 Dose: 2 mg Pantoprazole Sodium (Protonix Iv) 80 mg IVPUSH .BOLUS ONE Stop: 06/05/17 19:40 Last Admin: 06/05/17 20:12 Dose: 80 mg - Exam General: Alert, Oriented, Cooperative, Mild Distress Lungs: Clear to Auscultation, Normal Respiratory Effort Cardiovascular: Regular Rate, Regular Rhythm GI/Abdominal Exam: Soft, Tender Extremities: Normal Inspection, Normal Range of Motion, Non-Tender - Problem List Review Problem List Initiated/Reviewed/Updated: Yes - My Orders Last 24 Hours: My Active Orders 06/06/17 21:00 Insulin Detemir [Levemir] 20 unit SUBCUT BEDTIME - Plan Plan:: 56 yo male admitted with lower GI bleed. CT scan of abdomen reports possible localized mural thickening of the sigmoid colon. Dr. Waters has been consulted. Will hydrate with IV fluids and monitor hgb. For his elevated blood sugars will give levemer [address] on sliding scale insulin After speaking with Dr. Waters, we obtained a tagged red blood cell study which did not show any signs of acute bleeding, patient's hemoglobin is currently 9.9, Dr. Mirza stated that since the patient continues to be stable that there is nothing to do at this point in time. Do the next H&H in 12 hours, if the patient 's hemoglobin is at 9.1 or below then we can give a unit of blood or else do not do anything to the patient at the present moment.
[2017-06-06] MEDS ORDERED: Acetaminophen 325 MG Tab PO ONE (16:30)
[2017-06-06] MEDS ORDERED: Insulin Detemir 100 Units/ML 3 ML Pen SUBCUT SCH (21:00)
[2017-06-07] MEDS: Insulin Aspart 100 Units/ML 3 ML Pen SUBCUT SCH ×3 (00:40→12:32)
[2017-06-07] MEDS: Sodium Chloride 0.9% 1,000 ML IV SCH ×2 (01:48→13:30)
[2017-06-07 07:28] LABS: CHLORIDE,CL 108 mmol/L (98-107); SODIUM,NA 138 mmol/L (136-148)
--- NOTE | 2017-06-07 09:31 | PCM.SURGPN ---
- General Info Date of Service: 06/07/17 Functional Status: Reports: Pain Controlled - Review of Systems Gastrointestinal: Reports: No Symptoms (no new bloody stool, h/h dropped to 8.8 ; bleeding scan was negative yesterday) - Patient Data Vitals - Most Recent: Last Vital Signs Temp 98.1 F 06/07/17 08:20 Pulse 81 06/07/17 08:20 Resp 18 06/07/17 08:20 BP 108/66 06/07/17 08:20 Pulse Ox 96 06/07/17 08:20 Orthostatic Blood Pressure [ 80/46 Standing] Orthostatic Blood Pressure [ 80/51 Sitting] Orthostatic Blood Pressure [ 120/70 Supine] Weight - Most Recent: 287 lb 9.6 oz I&O - Last 24 Hours: Intake & Output 06/06/17 06/07/17 06/07/17 22:59 06:59 14:59 Intake Total 1667 1284 15 Output Total 800 Balance 867 1284 15 Lab Results Last 24 Hrs: Laboratory Results - last 24 hr 06/06/17 06/06/17 06/06/17 Range/Units 00:42 11:27 12:09 WBC (4.0-11.0) K/uL RBC (4.50-5.90) M/uL Hgb 9.9 L (13.0-17.0) g/dL Hct 28.7 L (38.0-50.0) % MCV (80.0-98.0) fL MCH (27.0-32.0) pg MCHC (31.0-37.0) g/dL RDW Std Deviation (28.0-62.0) fl RDW Coeff of Hayden (11.0-15.0) % Plt Count (150-400) K/uL MPV (7.40-12.00) fL Neut % (Auto) (48.0-80.0) % Lymph % (Auto) (16.0-40.0) % Hendry % (Auto) (0.0-15.0) % Eos % (Auto) (0.0-7.0) % Baso % (Auto) (0.0-1.5) % Neut # (Auto) (1.4-5.7) K/uL Lymph # (Auto) (0.6-2.4) K/uL Hendry # (Auto) (0.0-0.8) K/uL Eos # (Auto) (0.0-0.7) K/uL Baso # (Auto) (0.0-0.1) K/uL Nucleated RBC % /100WBC Nucleated RBCs # K/uL Absolute Retic (20-80) K/uL Percent Retic (0.5-1.5) % Immature Retic Fraction % Sodium (136-148) mmol/L Potassium (3.5-5.1) mmol/L Chloride (98-107) mmol/L Carbon Dioxide (21.0-32.0) mmol/L BUN (7.0-18.0) mg/dL Creatinine (0.8-1.3) mg/dL Est Cr Clr Drug Dosing mL/min Estimated GFR (MDRD) ml/min Glucose (74-106) mg/dL POC Glucose 235 H (60-110) mg/dL Uric Acid (2.6-7.2) mg/dL Calcium (8.5-10.1) mg/dL Iron (50-175) ug/dL TIBC (250-450) ug/dL % Saturation (20-55) % Transferrin (200-400) ug/dL Ferritin (26-388) ng/mL Total Bilirubin (0.2-1.0) mg/dL AST (15-37) IU/L ALT (14-63) IU/L Alkaline Phosphatase (46-116) U/L Lactate Dehydrogenase (81-234) U/L Total Protein (6.4-8.2) g/dL Albumin (3.4-5.0) g/dL Globulin (2.0-3.5) g/dL Albumin/Globulin Ratio (1.3-2.8) Blood Type A POSITIVE Antibody Screen NEGATIVE Crossmatch See Detail 06/06/17 06/06/17 06/07/17 Range/Units 17:31 21:29 00:15 WBC (4.0-11.0) K/uL RBC (4.50-5.90) M/uL Hgb 8.2 L (13.0-17.0) g/dL Hct 24.1 L (38.0-50.0) % MCV (80.0-98.0) fL MCH (27.0-32.0) pg MCHC (31.0-37.0) g/dL RDW Std Deviation (28.0-62.0) fl RDW Coeff of Hayden (11.0-15.0) % Plt Count (150-400) K/uL MPV (7.40-12.00) fL Neut % (Auto) (48.0-80.0) % Lymph % (Auto) (16.0-40.0) % Hendry % (Auto) (0.0-15.0) % Eos % (Auto) (0.0-7.0) % Baso % (Auto) (0.0-1.5) % Neut # (Auto) (1.4-5.7) K/uL Lymph # (Auto) (0.6-2.4) K/uL Hendry # (Auto) (0.0-0.8) K/uL Eos # (Auto) (0.0-0.7) K/uL Baso # (Auto) (0.0-0.1) K/uL Nucleated RBC % /100WBC Nucleated RBCs # K/uL Absolute Retic (20-80) K/uL Percent Retic (0.5-1.5) % Immature Retic Fraction % Sodium (136-148) mmol/L Potassium (3.5-5.1) mmol/L Chloride (98-107) mmol/L Carbon Dioxide (21.0-32.0) mmol/L BUN (7.0-18.0) mg/dL Creatinine (0.8-1.3) mg/dL Est Cr Clr Drug Dosing mL/min Estimated GFR (MDRD) ml/min Glucose (74-106) mg/dL POC Glucose 228 H 177 H (60-110) mg/dL Uric Acid (2.6-7.2) mg/dL Calcium (8.5-10.1) mg/dL Iron (50-175) ug/dL TIBC (250-450) ug/dL % Saturation (20-55) % Transferrin (200-400) ug/dL Ferritin (26-388) ng/mL Total Bilirubin (0.2-1.0) mg/dL AST (15-37) IU/L ALT (14-63) IU/L Alkaline Phosphatase (46-116) U/L Lactate Dehydrogenase (81-234) U/L Total Protein (6.4-8.2) g/dL Albumin (3.4-5.0) g/dL Globulin (2.0-3.5) g/dL Albumin/Globulin Ratio (1.3-2.8) Blood Type Antibody Screen Crossmatch 06/07/17 06/07/17 06/07/17 Range/Units 00:40 06:09 06:50 WBC 7.33 (4.0-11.0) K/uL RBC 2.90 L (4.50-5.90) M/uL Hgb 8.8 L (13.0-17.0) g/dL Hct 25.8 L (38.0-50.0) % MCV 89.0 (80.0-98.0) fL MCH 30.3 (27.0-32.0) pg MCHC 34.1 (31.0-37.0) g/dL RDW Std Deviation 42.7 (28.0-62.0) fl RDW Coeff of Hayden 13 (11.0-15.0) % Plt Count 178 (150-400) K/uL MPV 9.50 (7.40-12.00) fL Neut % (Auto) 62.7 (48.0-80.0) % Lymph % (Auto) 29.1 (16.0-40.0) % Hendry % (Auto) 5.6 (0.0-15.0) % Eos % (Auto) 2.3 (0.0-7.0) % Baso % (Auto) 0.3 (0.0-1.5) % Neut # (Auto) 4.6 (1.4-5.7) K/uL Lymph # (Auto) 2.1 (0.6-2.4) K/uL Hendry # (Auto) 0.4 (0.0-0.8) K/uL Eos # (Auto) 0.2 (0.0-0.7) K/uL Baso # (Auto) 0.0 (0.0-0.1) K/uL Nucleated RBC % 0.0 /100WBC Nucleated RBCs # 0 K/uL Absolute Retic (20-80) K/uL Percent Retic (0.5-1.5) % Immature Retic Fraction % Sodium (136-148) mmol/L Potassium (3.5-5.1) mmol/L Chloride (98-107) mmol/L Carbon Dioxide (21.0-32.0) mmol/L BUN (7.0-18.0) mg/dL Creatinine (0.8-1.3) mg/dL Est Cr Clr Drug Dosing mL/min Estimated GFR (MDRD) ml/min Glucose (74-106) mg/dL POC Glucose 172 H 176 H (60-110) mg/dL Uric Acid (2.6-7.2) mg/dL Calcium (8.5-10.1) mg/dL Iron (50-175) ug/dL TIBC (250-450) ug/dL % Saturation (20-55) % Transferrin (200-400) ug/dL Ferritin (26-388) ng/mL Total Bilirubin (0.2-1.0) mg/dL AST (15-37) IU/L ALT (14-63) IU/L Alkaline Phosphatase (46-116) U/L Lactate Dehydrogenase (81-234) U/L Total Protein (6.4-8.2) g/dL Albumin (3.4-5.0) g/dL Globulin (2.0-3.5) g/dL Albumin/Globulin Ratio (1.3-2.8) Blood Type Antibody Screen Crossmatch 06/07/17 06/07/17 06/07/17 Range/Units 06:50 06:50 06:50 WBC (4.0-11.0) K/uL RBC (4.50-5.90) M/uL Hgb (13.0-17.0) g/dL Hct (38.0-50.0) % MCV (80.0-98.0) fL MCH (27.0-32.0) pg MCHC (31.0-37.0) g/dL RDW Std Deviation (28.0-62.0) fl RDW Coeff of Hayden (11.0-15.0) % Plt Count (150-400) K/uL MPV (7.40-12.00) fL Neut % (Auto) (48.0-80.0) % Lymph % (Auto) (16.0-40.0) % Hendry % (Auto) (0.0-15.0) % Eos % (Auto) (0.0-7.0) % Baso % (Auto) (0.0-1.5) % Neut # (Auto) (1.4-5.7) K/uL Lymph # (Auto) (0.6-2.4) K/uL Hendry # (Auto) (0.0-0.8) K/uL Eos # (Auto) (0.0-0.7) K/uL Baso # (Auto) (0.0-0.1) K/uL Nucleated RBC % /100WBC Nucleated RBCs # K/uL Absolute Retic (20-80) K/uL Percent Retic (0.5-1.5) % Immature Retic Fraction % Sodium 138 (136-148) mmol/L Potassium 3.4 L (3.5-5.1) mmol/L Chloride 108 H (98-107) mmol/L Carbon Dioxide 22.8 (21.0-32.0) mmol/L BUN 11 (7.0-18.0) mg/dL Creatinine 0.7 L (0.8-1.3) mg/dL Est Cr Clr Drug Dosing 116.71 mL/min Estimated GFR (MDRD) > 60.0 ml/min Glucose 154 H (74-106) mg/dL POC Glucose (60-110) mg/dL Uric Acid 2.9 (2.6-7.2) mg/dL Calcium 7.5 L (8.5-10.1) mg/dL Iron 140 (50-175) ug/dL TIBC 198 L (250-450) ug/dL % Saturation 70.71 H (20-55) % Transferrin 139 L (200-400) ug/dL Ferritin 188 (26-388) ng/mL Total Bilirubin 0.9 (0.2-1.0) mg/dL AST 15 (15-37) IU/L ALT 23 (14-63) IU/L Alkaline Phosphatase 37 L (46-116) U/L Lactate Dehydrogenase 114 (81-234) U/L Total Protein 5.0 L (6.4-8.2) g/dL Albumin 2.5 L (3.4-5.0) g/dL Globulin 2.5 (2.0-3.5) g/dL Albumin/Globulin Ratio 1.0 L (1.3-2.8) Blood Type Antibody Screen Crossmatch 06/07/17 Range/Units 06:50 WBC (4.0-11.0) K/uL RBC 2.85 L (4.50-5.90) M/uL Hgb (13.0-17.0) g/dL Hct (38.0-50.0) % MCV (80.0-98.0) fL MCH (27.0-32.0) pg MCHC (31.0-37.0) g/dL RDW Std Deviation (28.0-62.0) fl RDW Coeff of Hayden (11.0-15.0) % Plt Count (150-400) K/uL MPV (7.40-12.00) fL Neut % (Auto) (48.0-80.0) % Lymph % (Auto) (16.0-40.0) % Hendry % (Auto) (0.0-15.0) % Eos % (Auto) (0.0-7.0) % Baso % (Auto) (0.0-1.5) % Neut # (Auto) (1.4-5.7) K/uL Lymph # (Auto) (0.6-2.4) K/uL Hendry # (Auto) (0.0-0.8) K/uL Eos # (Auto) (0.0-0.7) K/uL Baso # (Auto) (0.0-0.1) K/uL Nucleated RBC % /100WBC Nucleated RBCs # K/uL Absolute Retic 69.00 (20-80) K/uL Percent Retic 2.4 H (0.5-1.5) % Immature Retic Fraction 11 % Sodium (136-148) mmol/L Potassium (3.5-5.1) mmol/L Chloride (98-107) mmol/L Carbon Dioxide (21.0-32.0) mmol/L BUN (7.0-18.0) mg/dL Creatinine (0.8-1.3) mg/dL Est Cr Clr Drug Dosing mL/min Estimated GFR (MDRD) ml/min Glucose (74-106) mg/dL POC Glucose (60-110) mg/dL Uric Acid (2.6-7.2) mg/dL Calcium (8.5-10.1) mg/dL Iron (50-175) ug/dL TIBC (250-450) ug/dL % Saturation (20-55) % Transferrin (200-400) ug/dL Ferritin (26-388) ng/mL Total Bilirubin (0.2-1.0) mg/dL AST (15-37) IU/L ALT (14-63) IU/L Alkaline Phosphatase (46-116) U/L Lactate Dehydrogenase (81-234) U/L Total Protein (6.4-8.2) g/dL Albumin (3.4-5.0) g/dL Globulin (2.0-3.5) g/dL Albumin/Globulin Ratio (1.3-2.8) Blood Type Antibody Screen Crossmatch Med Orders - Current: Current Medications Sodium Chloride (Normal Saline) 1,000 mls @ 150 mls/hr IV ASDIRECTED JESSENIA Last Admin: 06/07/17 01:48 Dose: 150 mls/hr Insulin Aspart (Novolog) 0 unit SUBCUT Q6H [facility]; Protocol Last Admin: 06/07/17 06:13 Dose: 2 units Insulin Detemir (Levemir) 20 unit SUBCUT BEDTIME JESSENIA Last Admin: 06/06/17 21:39 Dose: 20 units Sodium Chloride (Saline Flush) 10 ml FLUSH ASDIRECTED PRN PRN Reason: Keep Vein Open Last Admin: 06/05/17 20:13 Dose: 10 ml Sodium Chloride (Saline Flush) 2.5 ml FLUSH ASDIRECTED PRN PRN Reason: Keep Vein Open Last Admin: 06/05/17 20:13 Dose: 2.5 ml Discontinued Medications Acetaminophen (Tylenol) 650 mg PO NOW ONE Stop: 06/06/17 16:31 Last Admin: 06/06/17 16:53 Dose: 650 mg Sodium Chloride (Normal Saline) 1,000 mls @ 999 mls/hr IV STAT ONE Stop: 06/05/17 20:39 Last Admin: 06/05/17 20:13 Dose: 999 mls/hr Sodium Chloride (Normal Saline) 1,000 mls @ 999 mls/hr IV STAT ONE Stop: 06/05/17 23:14 Last Admin: 06/05/17 22:23 Dose: 999 mls/hr Sodium Chloride (Normal Saline) 1,000 mls @ 999 mls/hr IV .Bolus ONE Stop: 06/06/17 04:14 Last Infusion: 06/06/17 04:11 Dose: Infused Sodium Chloride (Normal Saline) 500 mls @ 999 mls/hr IV .BOLUS JESSENIA Last Admin: 06/06/17 04:45 Dose: 999 mls/hr Insulin Detemir (Levemir) 20 unit SUBCUT ONETIME ONE Stop: 06/05/17 23:53 Last Admin: 06/06/17 00:26 Dose: 20 units Iopamidol (Isovue-370 (76%)) 100 ml IVPUSH ONETIME STA Stop: 06/05/17 20:47 Last Admin: 06/05/17 20:46 Dose: 100 ml Iopamidol (Isovue Multipack-370 (76%)) 100 ml IVPUSH ONETIME STA Stop: 06/06/17 15:35 Last Admin: 06/06/17 15:34 Dose: 100 ml Morphine Sulfate (Morphine) 2 mg IV ONETIME ONE Stop: 06/06/17 10:57 Last Admin: 06/06/17 11:18 Dose: 2 mg Pantoprazole Sodium (Protonix Iv) 80 mg IVPUSH .BOLUS ONE Stop: 06/05/17 19:40 Last Admin: 06/05/17 20:12 Dose: 80 mg - Exam GI/Abdominal Exam: Normal Bowel Sounds, Soft, Non-Tender, No Distention - Problem List Review Problem List Initiated/Reviewed/Updated: Yes - My Orders Last 24 Hours: Active Orders 24 hr Category Date Time Status Communication Order [RC] PER UNIT ROUTINE Care 06/07/17 02:00 Active Verify Patient Consent Obtain [RC] ASDIRECTED Care 06/07/17 02:08 Active CBC WITH AUTO DIFF [HEME] AM Lab 06/08/17 05:11 Ordered COMPREHENSIVE METABOLIC PN,CMP [CHEM] AM Lab 06/08/17 05:11 Ordered Insulin Detemir [Levemir] Med 06/06/17 21:00 Active 20 unit SUBCUT BEDTIME Transfuse Red Blood Cells [COMM] Per Unit Routine Oth 06/07/17 01:58 Ordered Medication Orders Sodium Chloride (Normal Saline) 1,000 mls @ 150 mls/hr IV ASDIRECTED JESSENIA Last Admin: 06/07/17 01:48 Dose: 150 mls/hr Infusion: 04/03/18 01:48 Dose: 150 mls/hr Admin: 06/06/17 19:07 Dose: 150 mls/hr Infusion: 06/06/17 17:58 Dose: 150 mls/hr Admin: 06/06/17 11:17 Dose: 150 mls/hr Infusion: 06/06/17 10:54 Dose: 150 mls/hr Admin: 06/06/17 04:13 Dose: 150 mls/hr Infusion: 06/06/17 04:13 Dose: 150 mls/hr Infusion: 06/06/17 03:13 Dose: 150 mls/hr Infusion: 06/06/17 03:13 Dose: 150 mls/hr Admin: 06/06/17 00:12 Dose: 150 mls/hr Insulin Aspart (Novolog) 0 unit SUBCUT Q6H JESSENIA; Protocol Last Admin: 06/07/17 06:13 Dose: 2 units Admin: 06/07/17 00:40 Dose: 2 units Admin: 06/06/17 17:34 Dose: 4 units Admin: 06/06/17 11:36 Dose: 4 units Admin: 06/06/17 06:05 Dose: 6 units Admin: 06/06/17 00:23 Dose: 8 units Insulin Detemir (Levemir) 20 unit SUBCUT BEDTIME [facility] Last Admin: 06/06/17 21:39 Dose: 20 units Sodium Chloride (Saline Flush) 10 ml FLUSH ASDIRECTED PRN PRN Reason: Keep Vein Open Last Admin: 06/05/17 20:13 Dose: 10 ml Sodium Chloride (Saline Flush) 2.5 ml FLUSH ASDIRECTED PRN PRN Reason: Keep Vein Open Last Admin: 06/05/17 20:13 Dose: 2.5 ml - Assessment Assessment (Free Text/Narrative):: doing well, negative bleeding scan; agree w txf to keep h/h above 10; large amt urine output, ok to back down ivf to 75; and started on clear po diet; will need colonoscopy 2 - 3 wks or if bleeding recurr - Plan Plan (Free Text/Narrative):: doing well, negative bleeding scan; agree w txf to keep h/h above 10; large amt urine output, ok to back down ivf to 75; and started on clear po diet; will need colonoscopy 2 - 3 wks or if bleeding recurr
--- NOTE | 2017-06-07 13:17 | PCM.DCSUM1 ---
<Cisco Osullivan Z - Last Filed: 06/07/17 13:07> Discharge Summary - Hospital Course HPI Initial Comments: Discharge Summary Date of admission: 06/05/2017 Date of discharge: 06/07/2018 Admitting diagnosis: #1. Lower GI bleed with blood/melena mixed stool #2. Orthostatic hypotension seen in ED #3. CT abdomen reports localized mural thickening of sigmoid colon, diverticulosis without diverticulitis #4. Hemoglobin at 13.4, platelets at 275 #5. Non-elevated LFTs Discharge diagnoses: #1. Lower GI bleed with blood/melena mixed stool throughout stay #2. Anemia with hemoglobin as low as 8.2, currently greater than 9 patient received 2 units of blood overnight #3. CT abdomen indicates localized mural thickening of the sigmoid colon diverticulosis without diverticulitis #4. Nonelevated LFTs #5. Patient requires immediate transfer for assessment/colonoscopy due to active bleeding and dropping hemoglobin. Consultations: Gen. surgery, Procedures: None Hospitalization course: Patient was admitted secondary to the orthostatic hypotension, and reports of lower GI bleeding. Patient states that he has never had symptoms of lower GI bleed prior to this, patient was made nothing by mouth with IV fluids along with consultation of general surgery. General surgery since the patient in the a.m. on 05/06/2017 by that point the patient's hemoglobin had dropped to 10.4. General surgery indicated that the patient would need a colonoscopy, however were hesitant to do the colonoscopy immediately due to what they felt was possible inflammation of the bowel that may cause complications. General surgery stated to simply assess whether or not the patient's hemoglobin would stabilize. General surgery recommended blood transfusion if the hemoglobin drops below 9.1. Overnight the patient's hemoglobin dropped to 8.2 subsequently patient received 2 units of blood, between the first and second unit patient's hemoglobin was 8.8. General surgery had recommended that despite this drop and hemoglobin, due to the fact that the tag red blood cell study did not indicate any acute GI bleeding that the patient does not need a inpatient colonoscopy and that the patient should be stabilize from a hemoglobin standpoint and discharge once hemodynamically stable and a follow-up colonoscopy outpatient in 2-3 weeks. However we were uncomfortable in regards to the patient's hemoglobin dropping and in regards to the length of time prior to the colonoscopy assessment, spoke with GI physician Dr. Beltran in [place], whom based on the clinical presentation stated the patient needed to be immediately transferred to a facility where he could be assessed, he recommended starting the patient on ciprofloxacin and Flagyl, to keep the patient nothing by mouth, and to have him immediately assessed. [facility] in [place] was completely full and unable to accept the patient. Afterwards we spoke with Dr. Yeager in [facility], who also agreed that the patient needed to be transferred to be assessed with a immediate colonoscopy. Subsequently I spoke with Dr. Bullock in the ER who agreed to accept the patient and patient is being transferred. Disposition on discharge: Stable Condition on discharge: Transfer to [facility] ED Discharge medications: Patient is nothing by mouth, on Cipro and Flagyl IV, IV fluids - Discharge Data Discharge Date: 06/07/17 Discharge Disposition: DC/Tfer to Acute Hospital 02 Condition: Stable - Patient Summary/Data Consults: Consultations 06/05/17 22:13 Consult to Physician [CONS] Stat 06/05/17 23:54 Consult to Diabetic Nurse Specialist [CONS] Routine - Patient Instructions Diet: NPO - Discharge Plan Home Medications: Home Meds Insulin NPH/Insulin Reg,Human [Novolin 70-30] 50 units SUBCUT BEDTIME 06/05/17 [ History] Ciprofloxacin in D5W [Ciprofloxacin-D5W] 400 mg IV Q12H bag 06/07/17 [Rx] Insulin Aspart [NovoLOG] 0 unit SUBCUT Q6H pen 06/07/17 [Rx] Insulin Detemir [Levemir] 20 unit SUBCUT BEDTIME pen 06/07/17 [Rx] Sodium Chloride 0.9% [Saline Flush] 2.5 ml FLUSH ASDIRECTED PRN syringe [Rx] Sodium Chloride 0.9% [Saline Flush] 10 ml FLUSH ASDIRECTED PRN syringe [Rx] metroNIDAZOLE/Normal Saline [Flagyl 500 MG in NS 100 ML] 500 mg IV QID bag 05/22 [Rx] Referrals: Cisco Osullivan MD [Resident] - Pop Luciano DO [Primary Care Provider] - - Discharge Summary/Plan Comment DC Time >30 min.: No - Patient Data Vitals - Most Recent: Last Vital Signs Temp 36.8 C 06/07/17 11:52 Pulse 64 06/07/17 11:52 Resp 18 06/07/17 11:52 BP 98/62 06/07/17 11:52 Pulse Ox 98 06/07/17 11:52 Orthostatic Blood Pressure [ 80/46 Standing] Orthostatic Blood Pressure [ 80/51 Sitting] Orthostatic Blood Pressure [ 120/70 Supine] Weight - Most Recent: 130.453 kg I&O - Last 24 hours: Intake & Output 06/06/17 06/07/17 06/07/17 22:59 06:59 14:59 Intake Total 1667 1284 350 Output Total 800 Balance 867 1284 350 Lab Results - Last 24 hrs: Laboratory Results - last 24 hr 06/06/17 06/06/17 06/06/17 Range/Units 00:42 17:31 21:29 WBC (4.0-11.0) K/uL RBC (4.50-5.90) M/uL Hgb (13.0-17.0) g/dL Hct (38.0-50.0) % MCV (80.0-98.0) fL MCH (27.0-32.0) pg MCHC (31.0-37.0) g/dL RDW Std Deviation (28.0-62.0) fl RDW Coeff of Hayden (11.0-15.0) % Plt Count (150-400) K/uL MPV (7.40-12.00) fL Neut % (Auto) (48.0-80.0) % Lymph % (Auto) (16.0-40.0) % [place] % (Auto) (0.0-15.0) % Eos % (Auto) (0.0-7.0) % Baso % (Auto) (0.0-1.5) % Neut # (Auto) (1.4-5.7) K/uL Lymph # (Auto) (0.6-2.4) K/uL [place] # (Auto) (0.0-0.8) K/uL Eos # (Auto) (0.0-0.7) K/uL Baso # (Auto) (0.0-0.1) K/uL Nucleated RBC % /100WBC Nucleated RBCs # K/uL Absolute Retic (20-80) K/uL Percent Retic (0.5-1.5) % Immature Retic Fraction % Sodium (136-148) mmol/L Potassium (3.5-5.1) mmol/L Chloride (98-107) mmol/L Carbon Dioxide (21.0-32.0) mmol/L BUN (7.0-18.0) mg/dL Creatinine (0.8-1.3) mg/dL Est Cr Clr Drug Dosing mL/min Estimated GFR (MDRD) ml/min Glucose (74-106) mg/dL POC Glucose 228 H 177 H (60-110) mg/dL Uric Acid (2.6-7.2) mg/dL Calcium (8.5-10.1) mg/dL Iron (50-175) ug/dL TIBC (250-450) ug/dL % Saturation (20-55) % Transferrin (200-400) ug/dL Ferritin (26-388) ng/mL Total Bilirubin (0.2-1.0) mg/dL AST (15-37) IU/L ALT (14-63) IU/L Alkaline Phosphatase (46-116) U/L Lactate Dehydrogenase (81-234) U/L Total Protein (6.4-8.2) g/dL Albumin (3.4-5.0) g/dL Globulin (2.0-3.5) g/dL Albumin/Globulin Ratio (1.3-2.8) Blood Type A POSITIVE Antibody Screen NEGATIVE Crossmatch See Detail 06/07/17 06/07/17 06/07/17 Range/Units 00:15 00:40 06:09 WBC (4.0-11.0) K/uL RBC (4.50-5.90) M/uL Hgb 8.2 L (13.0-17.0) g/dL Hct 24.1 L (38.0-50.0) % MCV (80.0-98.0) fL MCH (27.0-32.0) pg MCHC (31.0-37.0) g/dL RDW Std Deviation (28.0-62.0) fl RDW Coeff of Hayden (11.0-15.0) % Plt Count (150-400) K/uL MPV (7.40-12.00) fL Neut % (Auto) (48.0-80.0) % Lymph % (Auto) (16.0-40.0) % [place] % (Auto) (0.0-15.0) % Eos % (Auto) (0.0-7.0) % Baso % (Auto) (0.0-1.5) % Neut # (Auto) (1.4-5.7) K/uL Lymph # (Auto) (0.6-2.4) K/uL [place] # (Auto) (0.0-0.8) K/uL Eos # (Auto) (0.0-0.7) K/uL Baso # (Auto) (0.0-0.1) K/uL Nucleated RBC % /100WBC Nucleated RBCs # K/uL Absolute Retic (20-80) K/uL Percent Retic (0.5-1.5) % Immature Retic Fraction % Sodium (136-148) mmol/L Potassium (3.5-5.1) mmol/L Chloride (98-107) mmol/L Carbon Dioxide (21.0-32.0) mmol/L BUN (7.0-18.0) mg/dL Creatinine (0.8-1.3) mg/dL Est Cr Clr Drug Dosing mL/min Estimated GFR (MDRD) ml/min Glucose (74-106) mg/dL POC Glucose 172 H 176 H (60-110) mg/dL Uric Acid (2.6-7.2) mg/dL Calcium (8.5-10.1) mg/dL Iron (50-175) ug/dL TIBC (250-450) ug/dL % Saturation (20-55) % Transferrin (200-400) ug/dL Ferritin (26-388) ng/mL Total Bilirubin (0.2-1.0) mg/dL AST (15-37) IU/L ALT (14-63) IU/L Alkaline Phosphatase (46-116) U/L Lactate Dehydrogenase (81-234) U/L Total Protein (6.4-8.2) g/dL Albumin (3.4-5.0) g/dL Globulin (2.0-3.5) g/dL Albumin/Globulin Ratio (1.3-2.8) Blood Type Antibody Screen Crossmatch 06/07/17 06/07/17 06/07/17 Range/Units 06:50 06:50 06:50 WBC 7.33 (4.0-11.0) K/uL RBC 2.90 L (4.50-5.90) M/uL Hgb 8.8 L (13.0-17.0) g/dL Hct 25.8 L (38.0-50.0) % MCV 89.0 (80.0-98.0) fL MCH 30.3 (27.0-32.0) pg MCHC 34.1 (31.0-37.0) g/dL RDW Std Deviation 42.7 (28.0-62.0) fl RDW Coeff of Hayden 13 (11.0-15.0) % Plt Count 178 (150-400) K/uL MPV 9.50 (7.40-12.00) fL Neut % (Auto) 62.7 (48.0-80.0) % Lymph % (Auto) 29.1 (16.0-40.0) % Lar[place]ie % (Auto) 5.6 (0.0-15.0) % Eos % (Auto) 2.3 (0.0-7.0) % Baso % (Auto) 0.3 (0.0-1.5) % Neut # (Auto) 4.6 (1.4-5.7) K/uL Lymph # (Auto) 2.1 (0.6-2.4) K/uL [place] # (Auto) 0.4 (0.0-0.8) K/uL Eos # (Auto) 0.2 (0.0-0.7) K/uL Baso # (Auto) 0.0 (0.0-0.1) K/uL Nucleated RBC % 0.0 /100WBC Nucleated RBCs # 0 K/uL Absolute Retic (20-80) K/uL Percent Retic (0.5-1.5) % Immature Retic Fraction % Sodium 138 (136-148) mmol/L Potassium 3.4 L (3.5-5.1) mmol/L Chloride 108 H (98-107) mmol/L Carbon Dioxide 22.8 (21.0-32.0) mmol/L BUN 11 (7.0-18.0) mg/dL Creatinine 0.7 L (0.8-1.3) mg/dL Est Cr Clr Drug Dosing 116.71 mL/min Estimated GFR (MDRD) > 60.0 ml/min Glucose 154 H (74-106) mg/dL POC Glucose (60-110) mg/dL Uric Acid 2.9 (2.6-7.2) mg/dL Calcium 7.5 L (8.5-10.1) mg/dL Iron (50-175) ug/dL TIBC (250-450) ug/dL % Saturation (20-55) % Transferrin (200-400) ug/dL Ferritin (26-388) ng/mL Total Bilirubin 0.9 (0.2-1.0) mg/dL AST 15 (15-37) IU/L ALT 23 (14-63) IU/L Alkaline Phosphatase 37 L (46-116) U/L Lactate Dehydrogenase 114 (81-234) U/L Total Protein 5.0 L (6.4-8.2) g/dL Albumin 2.5 L (3.4-5.0) g/dL Globulin 2.5 (2.0-3.5) g/dL Albumin/Globulin Ratio 1.0 L (1.3-2.8) Blood Type Antibody Screen Crossmatch 06/07/17 06/07/17 06/07/17 Range/Units 06:50 06:50 11:43 WBC (4.0-11.0) K/uL RBC 2.85 L (4.50-5.90) M/uL Hgb (13.0-17.0) g/dL Hct (38.0-50.0) % MCV (80.0-98.0) fL MCH (27.0-32.0) pg MCHC (31.0-37.0) g/dL RDW Std Deviation (28.0-62.0) fl RDW Coeff of Hayden (11.0-15.0) % Plt Count (150-400) K/uL MPV (7.40-12.00) fL Neut % (Auto) (48.0-80.0) % Lymph % (Auto) (16.0-40.0) % [place] % (Auto) (0.0-15.0) % Eos % (Auto) (0.0-7.0) % Baso % (Auto) (0.0-1.5) % Neut # (Auto) (1.4-5.7) K/uL Lymph # (Auto) (0.6-2.4) K/uL [place] # (Auto) (0.0-0.8) K/uL Eos # (Auto) (0.0-0.7) K/uL Baso # (Auto) (0.0-0.1) K/uL Nucleated RBC % /100WBC Nucleated RBCs # K/uL Absolute Retic 69.00 (20-80) K/uL Percent Retic 2.4 H (0.5-1.5) % Immature Retic Fraction 11 % Sodium (136-148) mmol/L Potassium (3.5-5.1) mmol/L Chloride (98-107) mmol/L Carbon Dioxide (21.0-32.0) mmol/L BUN (7.0-18.0) mg/dL Creatinine (0.8-1.3) mg/dL Est Cr Clr Drug Dosing mL/min Estimated GFR (MDRD) ml/min Glucose (74-106) mg/dL POC Glucose 161 H (60-110) mg/dL Uric Acid (2.6-7.2) mg/dL Calcium (8.5-10.1) mg/dL Iron 140 (50-175) ug/dL TIBC 198 L (250-450) ug/dL % Saturation 70.71 H (20-55) % Transferrin 139 L (200-400) ug/dL Ferritin 188 (26-388) ng/mL Total Bilirubin (0.2-1.0) mg/dL AST (15-37) IU/L ALT (14-63) IU/L Alkaline Phosphatase (46-116) U/L Lactate Dehydrogenase (81-234) U/L Total Protein (6.4-8.2) g/dL Albumin (3.4-5.0) g/dL Globulin (2.0-3.5) g/dL Albumin/Globulin Ratio (1.3-2.8) Blood Type Antibody Screen Crossmatch Med Orders - Current: Current Medications Sodium Chloride (Normal Saline) 1,000 mls @ 150 mls/hr IV ASDIRECTED JESSENIA Last Infusion: 06/07/17 11:15 Dose: Infused Insulin Aspart (Novolog) 0 unit SUBCUT Q6H [facility]; Protocol Last Admin: 06/07/17 12:32 Dose: 2 units Insulin Detemir (Levemir) 20 unit SUBCUT BEDTIME [facility] Last Admin: 06/06/17 21:39 Dose: 20 units Sodium Chloride (Saline Flush) 10 ml FLUSH ASDIRECTED PRN PRN Reason: Keep Vein Open Last Admin: 06/05/17 20:13 Dose: 10 ml Sodium Chloride (Saline Flush) 2.5 ml FLUSH ASDIRECTED PRN PRN Reason: Keep Vein Open Last Admin: 06/05/17 20:13 Dose: 2.5 ml Discontinued Medications Acetaminophen (Tylenol) 650 mg PO NOW ONE Stop: 06/06/17 16:31 Last Admin: 06/06/17 16:53 Dose: 650 mg Sodium Chloride (Normal Saline) 1,000 mls @ 999 mls/hr IV STAT ONE Stop: 06/05/17 20:39 Last Admin: 06/05/17 20:13 Dose: 999 mls/hr Sodium Chloride (Normal Saline) 1,000 mls @ 999 mls/hr IV STAT ONE Stop: 06/05/17 23:14 Last Admin: 06/05/17 22:23 Dose: 999 mls/hr Sodium Chloride (Normal Saline) 1,000 mls @ 999 mls/hr IV .Bolus ONE Stop: 06/06/17 04:14 Last Infusion: 06/06/17 04:11 Dose: Infused Sodium Chloride (Normal Saline) 500 mls @ 999 mls/hr IV .BOLUS [facility] Last Admin: 06/06/17 04:45 Dose: 999 mls/hr Insulin Detemir (Levemir) 20 unit SUBCUT ONETIME ONE Stop: 06/05/17 23:53 Last Admin: 06/06/17 00:26 Dose: 20 units Iopamidol (Isovue-370 (76%)) 100 ml IVPUSH ONETIME STA Stop: 06/05/17 20:47 Last Admin: 06/05/17 20:46 Dose: 100 ml Iopamidol (Isovue Multipack-370 (76%)) 100 ml IVPUSH ONETIME STA Stop: 06/06/17 15:35 Last Admin: 06/06/17 15:34 Dose: 100 ml Morphine Sulfate (Morphine) 2 mg IV ONETIME ONE Stop: 06/06/17 10:57 Last Admin: 06/06/17 11:18 Dose: 2 mg Pantoprazole Sodium (Protonix Iv) 80 mg IVPUSH .BOLUS ONE Stop: 06/05/17 19:40 Last Admin: 06/05/17 20:12 Dose: 80 mg <MoonAdolph - Last Filed: 06/09/17 14:29> Discharge Summary - Patient Summary/Data Consults: Consultations 06/05/17 22:13 Consult to Physician [CONS] Stat 06/05/17 23:54 Consult to Diabetic Nurse Specialist [CONS] Routine - Patient Data Vitals - Most Recent: Last Vital Signs Temp 36.8 C 06/07/17 11:52 Pulse 64 06/07/17 11:52 Resp 18 06/07/17 11:52 BP 98/62 06/07/17 11:52 Pulse Ox 98 06/07/17 11:52 Orthostatic Blood Pressure [ 80/46 Standing] Orthostatic Blood Pressure [ 80/51 Sitting] Orthostatic Blood Pressure [ 120/70 Supine] Med Orders - Current: Current Medications Discontinued Medications Acetaminophen (Tylenol) 650 mg PO NOW ONE Stop: 06/06/17 16:31 Last Admin: 06/06/17 16:53 Dose: 650 mg Sodium Chloride (Normal Saline) 1,000 mls @ 999 mls/hr IV STAT ONE Stop: 06/05/17 20:39 Last Admin: 06/05/17 20:13 Dose: 999 mls/hr Sodium Chloride (Normal Saline) 1,000 mls @ 999 mls/hr IV STAT ONE Stop: 06/05/17 23:14 Last Admin: 06/05/17 22:23 Dose: 999 mls/hr Sodium Chloride (Normal Saline) 1,000 mls @ 150 mls/hr IV ASDIRECTED JESSENIA Last Admin: 06/07/17 13:30 Dose: 150 mls/hr Sodium Chloride (Normal Saline) 1,000 mls @ 999 mls/hr IV .Bolus ONE Stop: 06/06/17 04:14 Last Infusion: 06/06/17 04:11 Dose: Infused Sodium Chloride (Normal Saline) 500 mls @ 999 mls/hr IV .BOLUS JSESENIA Last Admin: 06/06/17 04:45 Dose: 999 mls/hr Ciprofloxacin/Dextrose 400 mg/ (Premix) 200 mls @ 200 mls/hr IV Q12H JESSENIA Last Admin: 06/07/17 13:56 Dose: 200 mls/hr Metronidazole 500 mg/ Premix 100 mls @ 100 mls/hr IV QID JESSENIA Insulin Aspart (Novolog) 0 unit SUBCUT Q6H JESSENIA; Protocol Last Admin: 06/07/17 12:32 Dose: 2 units Insulin Detemir (Levemir) 20 unit SUBCUT ONETIME ONE Stop: 06/05/17 23:53 Last Admin: 06/06/17 00:26 Dose: 20 units Insulin Detemir (Levemir) 20 unit SUBCUT BEDTIME JESSENIA Last Admin: 06/06/17 21:39 Dose: 20 units Iopamidol (Isovue-370 (76%)) 100 ml IVPUSH ONETIME STA Stop: 06/05/17 20:47 Last Admin: 06/05/17 20:46 Dose: 100 ml Iopamidol (Isovue Multipack-370 (76%)) 100 ml IVPUSH ONETIME STA Stop: 06/06/17 15:35 Last Admin: 06/06/17 15:34 Dose: 100 ml Morphine Sulfate (Morphine) 2 mg IV ONETIME ONE Stop: 06/06/17 10:57 Last Admin: 06/06/17 11:18 Dose: 2 mg Pantoprazole Sodium (Protonix Iv) 80 mg IVPUSH .BOLUS ONE Stop: 06/05/17 19:40 Last Admin: 06/05/17 20:12 Dose: 80 mg Sodium Chloride (Saline Flush) 10 ml FLUSH ASDIRECTED PRN PRN Reason: Keep Vein Open Last Admin: 06/05/17 20:13 Dose: 10 ml Sodium Chloride (Saline Flush) 2.5 ml FLUSH ASDIRECTED PRN PRN Reason: Keep Vein Open Last Admin: 06/05/17 20:13 Dose: 2.5 ml - Free Text/Narrative Note: I have examined the patient. I have discussed findings and treatment plan with the resident. I agree with the assessment and plan outlined in the following resident's note.
[2017-06-07] MEDS ORDERED: metroNIDAZOLE/Normal Saline 500 MG in Premix Bag 1 BAG IV SCH (14:00)
[2017-06-07] MEDS ORDERED: Ciprofloxacin in D5W 400 MG in Premix Bag 1 BAG IV SCH ×2 (14:00)
== END 2017-06-07 14:30 ==
LOC: MW.ED 18:53 → MW.MS 22:13
PROVIDERS: ADMIT Internal Medicine; ATTEND Internal Medicine
DX: K92.1 Melena (principal); D64.9 Anemia, unspecified; K57.30 Diverticulosis of large intestine without perforation or abscess without bleeding; E11.9 Type 2 diabetes mellitus without complications; Z79.4 Long term (current) use of insulin; Z79.899 Other long term (current) drug therapy
CPT/HCPCS: 36415; 36430; 74174; 74177; 78278; 80048; 80053; 82728; 82962; 83550; 83615; 83690; 84550; 85014; 85018; 85025; 85027; 85045; 85610; 86850; 86900; 86901; 86920; 86921; 86922; 96361; 96374; 96375; 99285; A9270; A9508; C9113; G0378; J0744; J1815; J2270; J7040; P9016; Q9967; 99284

== ENCOUNTER 2017-10-21 20:06 | Emergency (ER) | payer SELFPAY ==
--- NOTE | 2017-10-21 20:16 | EDM.PDOC ---
ED HPI GENERAL MEDICAL PROBLEM - General Stated Complaint: BUSTED HIS TOES ON LF Time Seen by Provider: 10/21/17 20:11 - History of Present Illness INITIAL COMMENTS - FREE TEXT/NARRATIVE: HISTORY AND PHYSICAL: History of present illness: Patient's 56-year-old white male presents with a concern of bleeding varicosity in his left leg this occurred when he removed his left boot and sock he's had similar episodes in the past and denies any bleeding diathesis Review of systems: As per history of present illness and below otherwise all systems reviewed and negative. Past medical history: As per history of present illness and as reviewed below otherwise noncontributory. Surgical history: As per history of present illness and as reviewed below otherwise noncontributory. Social history: No reported history of drug or alcohol abuse. Family history: As per history of present illness and as reviewed below otherwise noncontributory. Physical exam: HEENT: Atraumatic, normocephalic, pupils reactive, negative for conjunctival pallor or scleral icterus, mucous membranes moist, throat clear, neck supple, nontender, trachea midline. Lungs: Clear to auscultation, breath sounds equal bilaterally, chest nontender. Heart: S1S2, regular, negative for clicks, rubs, or JVD. Abdomen: Soft, nondistended, nontender. Negative for masses or hepatosplenomegaly. Negative for costovertebral tenderness. Pelvis: Stable nontender. Genitourinary: Deferred. Rectal: Deferred. Extremities: Patient has significant varicosities noted bilateral inferior extremities the bleeding varicosity noted to be distal on his left leg at this point has been controlled with direct pressure and there is no active bleeding bacitracin and Gelfoam dressing was applied Neuro: Awake, alert, oriented. Cranial nerves II through XII unremarkable. Cerebellum unremarkable. Motor and sensory unremarkable throughout. Exam nonfocal. Diagnostics: None Therapeutics: None Impression: #1 bleeding varicosity of lower extremity Definitive disposition and diagnosis as appropriate pending reevaluation and review of above. - Related Data Allergies Allergy/AdvReac Type Severity Reaction Status Date / Time No Known Allergies Allergy Verified 06/05/17 19:26 Home Meds: Home Meds Insulin NPH/Insulin Reg,Human [Novolin 70-30] 50 units SUBCUT BEDTIME 06/05/17 [ History] Ciprofloxacin in D5W [Ciprofloxacin-D5W] 400 mg IV Q12H bag 06/07/17 [Rx] Insulin Aspart [NovoLOG] 0 unit SUBCUT Q6H pen 06/07/17 [Rx] Insulin Detemir [Levemir] 20 unit SUBCUT BEDTIME pen 06/07/17 [Rx] Sodium Chloride 0.9% [Saline Flush] 2.5 ml FLUSH ASDIRECTED PRN syringe [Rx] Sodium Chloride 0.9% [Saline Flush] 10 ml FLUSH ASDIRECTED PRN syringe [Rx] metroNIDAZOLE/Normal Saline [Flagyl 500 MG in NS 100 ML] 500 mg IV QID bag 05/22 [Rx] Past Medical History - Past Health History Medical/Surgical History: Denies Medical/Surgical History HEENT History: Reports: None Cardiovascular History: Reports: None Respiratory History: Reports: None Gastrointestinal History: Reports: None Genitourinary History: Reports: None Musculoskeletal History: Reports: None Neurological History: Reports: None Psychiatric History: Reports: None Endocrine/Metabolic History: Reports: Diabetes, Type II Hematologic History: Reports: None Immunologic History: Reports: None Oncologic (Cancer) History: Reports: None Dermatologic History: Reports: None - Infectious Disease History Infectious Disease History: Reports: Chicken Pox, Measles - Past Surgical History HEENT Surgical History: Reports: Eye Surgery Male Surgical History: Reports: None Musculoskeletal Surgical History: Reports: Arthroscopic Knee, Other (See Below) Social & Family History - Family History Family Medical History: Noncontributory - Caffeine Use Caffeine Use: Reports: Coffee, Energy Drinks, Soda, Tea ED ROS GENERAL - Review of Systems Review Of Systems: ROS reveals no pertinent complaints other than HPI. ED EXAM, GENERAL - Physical Exam Exam: See Below (The dictation) Departure - Departure Time of Disposition: 20:16 Disposition: Home, Self-Care 01 Condition: Good Clinical Impression: Bleeding from varicose vein - Discharge Information *PRESCRIPTION DRUG MONITORING PROGRAM REVIEWED*: Not Applicable *COPY OF PRESCRIPTION DRUG MONITORING REPORT IN PATIENT JAYMIE: Not Applicable Referrals: PCP,None [Primary Care Provider] - Additional Instructions: The following information is given to patients seen in the emergency department who are being discharged to home. This information is to outline your options for follow-up care. We provide all patients seen in our emergency department with a follow-up referral. The need for follow-up, as well as the timing and circumstances, are variable depending upon the specifics of your emergency department visit. If you don't have a primary care physician on staff, we will provide you with a referral. We always advise you to contact your personal physician following an emergency department visit to inform them of the circumstance of the visit and for follow-up with them and/or the need for any referrals to a consulting specialist. The emergency department will also refer you to a specialist when appropriate. This referral assures that you have the opportunity for followup care with a specialist. All of these measure are taken in an effort to provide you with optimal care, which includes your followup. Under all circumstances we always encourage you to contact your private physician who remains a resource for coordinating your care. When calling for followup care, please make the office aware that this follow-up is from your recent emergency room visit. If for any reason you are refused follow-up, please contact the [facility] emergency department at and asked to speak to the emergency department charge nurse. Dressing as directed follow-up primary medical doctor as needed as discussed return as needed as discussed
[2017-10-21] MEDS ORDERED: Bacitracin Oint 1 GM U/D Packet TOP ONE (20:30)
[2017-10-21] MEDS ORDERED: Bacitracin Oint 1 GM U/D Packet ONE (20:32)
[2017-10-21] MEDS ORDERED: Bacitracin Oint 28.35 GM Tube TOP SCH ×2 (22:00)
== END 2017-10-21 21:05 | disposition home or self-care (01) ==
LOC: MW.ED 20:06
DX: I83.892 Varicose veins of left lower extremity with other complications (principal); I83.91 Asymptomatic varicose veins of right lower extremity; Z79.4 Long term (current) use of insulin; Z79.899 Other long term (current) drug therapy
CPT/HCPCS: 99282; 99283